=== PATIENT | male | born 1985 | race Caucasian/White ===

== ENCOUNTER 2018-12-03 08:34 | Emergency (ER) | payer SELFPAY ==
[~2018-12-03] VITALS: Ht 170.2 cm; Wt 136.1 kg
--- OUTSIDE RECORDS SUMMARY | 2018-12-03 08:36 | XMS REPORT | Summary of Care ---
Author Author [facility] Organization [facility] Address Unknown Phone Unavailable Encounter YUMIKO Brown(AMOS) [id number] Date(s): 06/18/17 - 06/18/17 [facility] [address] [place] [address]- [phone] Discharge Diagnosis: Atypical chest pain Discharge Disposition: Home or Self Care Attending Physician: Jyothi Mack DO Vital Signs Most recent to 1 2 oldest [Reference Range]: Height 167.64 cm (06/18/17 1:15 AM) Temperature Oral 98.0 DegF 98.2 DegF [96.4-99.1 DegF] (06/18/17 5:16 AM) (06/18/17 1:15 AM) Blood Pressure 125/84 mmHg 126/88 mmHg [90-140/60-90 mmHg] (06/18/17 5:16 AM) (06/18/17 1:15 AM) Respiratory Rate 14 BRMIN 18 BRMIN [14-20 BRMIN] (06/18/17 5:16 AM) (06/18/17 1:15 AM) Peripheral Pulse 76 bpm Rate [60-100 bpm] (06/18/17 1:15 AM) Weight 131.818 kg (06/18/17 1:15 AM) Body Mass Index 46.91 m2 (06/18/17 1:15 AM) Problem List No data available for this section Allergies, Adverse Reactions, Alerts Substance Reaction Severity Status morphine Active Medications Flexeril 10 mg oral tablet 10 mg=1 tab, PO, TID, PRN for spasm, X 5 day, # 15 tab, 0 Refill(s) Start Date: 06/18/17 Stop Date: 06/23/17 Status: Ordered ketOROLAC 15 mg, Route: IVP, Drug form: INJ, ONCE, Dosing Weight 131.818, kg, Priority: ST AT, Start date: 06/18/17 4:59:00 CDT, Stop date: 06/18/17 4:59:00 CDT Start Date: 06/18/17 Stop Date: 06/18/17 Status: Completed Results ELECTROLYTES Most recent to 1 oldest [Reference Range]: Sodium Lvl [135-145 137 mEq/L mEq/L] (06/18/17 3:54 AM) Potassium Lvl 3.8 mEq/L [3.5-5.1 mEq/L] (06/18/17 3:54 AM) Chloride Lvl [95-109 104 mEq/L mEq/L] (06/18/17 3:54 AM) CO2 [24-32 mEq/L] 29 mEq/L (06/18/17 3:54 AM) AGAP [10.0-20.0 7.8 mEq/L mEq/L] *LOW* (06/18/17 3:54 AM) CHEM PANEL Most recent to 1 oldest [Reference Range]: Creatinine Lvl 1.10 mg/dL [0.50-1.40 mg/dL] (06/18/17 3:54 AM) eGFR 88 mL/min/1.73m2 1 *NA* (06/18/17 3:54 AM) BUN [7-22 mg/dL] 13 mg/dL (06/18/17 3:54 AM) B/C Ratio [6-25] 12 (06/18/17 3:54 AM) Glucose Lvl [70-99 80 mg/dL mg/dL] (06/18/17 3:54 AM) Total Protein 7.8 g/dL [6.4-8.4 g/dL] (06/18/17 3:54 AM) Albumin Lvl [3.5-5.0 3.9 g/dL g/dL] (06/18/17 3:54 AM) Globulin [2.7-4.2 3.9 g/dL g/dL] (06/18/17 3:54 AM) A/G Ratio [0.7-1.6] 1.0 (06/18/17 3:54 AM) Calcium Lvl 8.4 mg/dL [8.5-10.5 mg/dL] *LOW* (06/18/17 3:54 AM) ALT [0-65 unit/L] 58 unit/L (06/18/17 3:54 AM) AST [0-37 unit/L] 31 unit/L (06/18/17 3:54 AM) Alk Phos [39-136 111 unit/L unit/L] (06/18/17 3:54 AM) Bili Total [0.2-1.3 0.5 mg/dL mg/dL] (06/18/17 3:54 AM) 1Result Comment: The eGFR is calculated using the CKD-EPI formula. In most young, healthy individuals the eGFR will be >90 mL/min/1.73m2. The eGFR declines with age. An eGFR of 60-89 may be normal in some populations, particularly the elderly, for whom the CKD-EPI formula has not been extensively validated. Use of the eGFR is not recommended in the following populations: Individuals with unstable creatinine concentrations, including patients and those with serious co-morbid conditions. Patients with extremes in muscle mass or diet. The data above are obtained from the National Kidney Disease Education Program ( NKDEP) which additionally recommends that when the eGFR is used in patients with extremes of body mass index for purposes of drug dosing, the eGFR should be mul tiplied by the estimated BMI. CARDIAC ENZYMES Most recent to 1 oldest [Reference Range]: Total CK [12-191 190 unit/L unit/L] (06/18/17 3:54 AM) CK MB [0.5-3.6 1.2 ng/mL ng/mL] (06/18/17 3:54 AM) Troponin-I <0.02 ng/mL [0.00-0.40 ng/mL] (06/18/17 3:54 AM) HEMATOLOGY Most recent to 1 oldest [Reference Range]: WBC [3.7-10.4 K/CMM] 6.4 K/CMM (06/18/17 3:54 AM) RBC [4.70-6.10 5.27 M/CMM M/CMM] (06/18/17 3:54 AM) Hgb [14.0-18.0 g/dL] 15.6 g/dL (06/18/17 3:54 AM) Hct [42.0-54.0 %] 45.6 % (06/18/17 3:54 AM) MCV [80.0-94.0 fL] 86.7 fL (06/18/17 3:54 AM) MCH [27.0-31.0 pg] 29.5 pg (06/18/17 3:54 AM) MCHC [32.0-36.0 34.1 g/dL g/dL] (06/18/17 3:54 AM) RDW [11.5-14.5 %] 13.7 % (06/18/17 3:54 AM) Platelet [133-450 133 K/CMM K/CMM] (06/18/17 3:54 AM) MPV [7.4-10.4 fL] 10.1 fL (06/18/17 3:54 AM) Segs [45.0-75.0 %] 51.7 % (06/18/17 3:54 AM) Lymphocytes 34.3 % [20.0-40.0 %] (06/18/17 3:54 AM) Monocytes [2.0-12.0 11.4 % %] (06/18/17 3:54 AM) Eosinophils [0.0-4.0 2.3 % %] (06/18/17 3:54 AM) Basophils [0.0-1.0 0.3 % %] (06/18/17 3:54 AM) Segs-Bands # 3.3 K/CMM [1.5-8.1 K/CMM] (06/18/17 3:54 AM) Lymphocytes # 2.2 K/CMM [1.0-5.5 K/CMM] (06/18/17 3:54 AM) Monocytes # [0.0-0.8 0.7 K/CMM K/CMM] (06/18/17 3:54 AM) Eosinophils # 0.1 K/CMM [0.0-0.5 K/CMM] (06/18/17 3:54 AM) D-Dimer <0.27 ug/mL FEU *NA* (06/18/17 3:54 AM) Immunizations No data available for this section Procedures No data available for this section Social History Social History Type Response Smoking Status Current some day smoker; Type: marijuanna; Exposure to Tobacco Smoke None; Cigarette Smoking Last 365 Days Yes; Reg Smoking Cessation Counseling No Assessment and Plan No data available for this section
--- OUTSIDE RECORDS SUMMARY | 2018-12-03 08:36 | XMS REPORT | Continuity of Care Document ---
Author Author [facility] Address Unknown Phone Unavailable Problems Problem Status Onset Date Classification Date Reported Comments Source Discharge Diagnosis: Atypical chest pain 06/18/2017 06/21/2017 [facility] CHEST PAIN Active 06/17/2017 [facility] Medications Medication Details Route Status Patient Instructions Ordering Provider Order Date Source Cyclobenzaprine hydrochloride 10 MG Oral Tablet [Flexeril] 10 mg=1 tab, PO, TID, PRN for spasm, X 5 day, # 15 tab, 0 Refill(s) Active 06/18/2017 [facility] Ketorolac 15 mg, Route: IVP, Drug form: INJ, ONCE, Dosing Weight 131.818, kg, Priority: STAT, Start date: 06/18/17 4:59:00 CDT, Stop date: 06/18/17 4:59:00 CDT Inactive 06/18/2017 [facility] Allergies, Adverse Reactions, Alerts Substance Category Reaction Severity Reaction type Status Date Reported Comments Source morphine Assertion Drug allergy Active [facility] Immunizations Immunization Date Given Site Status Last Updated Comments Source Results Order Name Results Value Reference Range Date Interpretation Comments Source CARDIAC ENZYMES Total CK 190 unit/L 12 - 191 06/18/2017 [facility] CARDIAC ENZYMES CK MB 1.2 ng/mL 0.5 - 3.6 06/18/2017 [facility] CARDIAC ENZYMES Troponin-I null 0.00 - 0.40 06/18/2017 [facility] CHEM PANEL A/G Ratio 1.0 0.7 - 1.6 06/18/2017 [facility] CHEM PANEL Globulin 3.9 g/dL 2.7 - 4.2 06/18/2017 [facility] CHEM PANEL B/C Ratio 12 6 - 25 06/18/2017 [facility] CHEM PANEL AGAP 7.8 meq/L 10.0 - 20.0 06/18/2017 [facility] CHEM PANEL eGFR 88 mL/min/1.73m2 06/18/2017 Result Comment: The eGFR is calculated using the [...] from the National Kidney Disease Education Program (NKDEP) which additionally recommends that when the eGFR is used in patients with extremes of body mass index for purposes of drug dosing, the eGFR should be multiplied by the estimated BMI. [facility] CHEM PANEL Calcium Lvl 8.4 mg/dL 8.5 - 10.5 06/18/2017 [facility] CHEM PANEL Albumin Lvl 3.9 g/dL 3.5 - 5.0 06/18/2017 [facility] CHEM PANEL CO2 29 meq/L 24 - 32 06/18/2017 [facility] CHEM PANEL Potassium Lvl 3.8 meq/L 3.5 - 5.1 06/18/2017 [facility] CHEM PANEL Total Protein 7.8 g/dL 6.4 - 8.4 06/18/2017 [facility] CHEM PANEL Chloride Lvl 104 meq/L 95 - 109 06/18/2017 [facility] CHEM PANEL Alk Phos 111 unit/L 39 - 136 06/18/2017 [facility] CHEM PANEL ALT 58 unit/L 0 - 65 06/18/2017 [facility] CHEM PANEL AST 31 unit/L 0 - 37 06/18/2017 [facility] CHEM PANEL Bili Total 0.5 mg/dL 0.2 - 1.3 06/18/2017 [facility] CHEM PANEL Creatinine Lvl 1.10 mg/dL 0.50 - 1.40 06/18/2017 [facility] CHEM PANEL Glucose Lvl 80 mg/dL 70 - 99 06/18/2017 [facility] CHEM PANEL BUN 13 mg/dL 7 - 22 06/18/2017 [facility] CHEM PANEL Sodium Lvl 137 meq/L 135 - 145 06/18/2017 [facility] HEMATOLOGY Eosinophils # 0.1 K/CMM 0.0 - 0.5 06/18/2017 [facility] HEMATOLOGY Segs 51.7 % 45.0 - 75.0 06/18/2017 [facility] HEMATOLOGY Eosinophils 2.3 % 0.0 - 4.0 06/18/2017 [facility] HEMATOLOGY Monocytes 11.4 % 2.0 - 12.0 06/18/2017 [facility] HEMATOLOGY Lymphocytes 34.3 % 20.0 - 40.0 06/18/2017 [facility] Lymphocytes # 2.2 K/CMM 1.0 - 5.5 06/18/2017 [facility] Segs-Bands # 3.3 K/CMM 1.5 - 8.1 06/18/2017 [facility] Basophils 0.3 % 0.0 - 1.0 06/18/2017 [facility] Monocytes # 0.7 K/CMM 0.0 - 0.8 06/18/2017 [facility] D-Dimer null 06/18/2017 [facility] MPV 10.1 fL 7.4 - 10.4 06/18/2017 [facility] Platelet 133 K/CMM 133 - 450 06/18/2017 [facility] MCHC 34.1 g/dL 32.0 - 36.0 06/18/2017 [facility] RDW 13.7 % 11.5 - 14.5 06/18/2017 [facility] MCH 29.5 pg 27.0 - 31.0 06/18/2017 [facility] Hgb 15.6 g/dL 14.0 - 18.0 06/18/2017 [facility] MCV 86.7 fL 80.0 - 94.0 06/18/2017 [facility] RBC 5.27 M/CMM 4.70 - 6.10 06/18/2017 [facility] WBC 6.4 K/CMM 3.7 - 10.4 06/18/2017 [facility] Hct 45.6 % 42.0 - 54.0 06/18/2017 [facility] Chest 1view DX Chest 1view DX Clinical Indication: Shortness of breath, chest pain Comparison: None FINDINGS: The frontal chest radiograph shows normal lung volumes without interstitial or airspace opacities, pleural effusions or pneumothorax. The cardiomediastinal contours are normal. The trachea is midline. There are no clinically significant osseous abnormalities noted. IMPRESSION: No chest radiographic evidence of acute cardiopulmonary disease. SL: 82 06/18/2017 - - Read by: Wolf Liz MD Dictated Date/time: 06/18/17 03:51 Electronically Signed by: Wolf Liz MD 06/18/17 03:52 FINAL REPORT [facility] Vital Signs Vital Sign Value Date Comments Source Temperature Oral (F) 98.0 F 06/18/2017 [facility] Respitory Rate 14 06/18/2017 [facility] Systolic (mm Hg) 125 06/18/2017 [facility] Diastolic (mm Hg) 84 06/18/2017 [facility] Weight 131.818 06/18/2017 [facility] BMI Calculated 46.91 06/18/2017 [facility] Height 167.64 cm 06/18/2017 [facility] Heart Rate 76 06/18/2017 [facility] Respitory Rate 18 06/18/2017 [facility] Systolic (mm Hg) 126 06/18/2017 [facility] Diastolic (mm Hg) 88 06/18/2017 [facility] Temperature Oral (F) 98.2 F 06/18/2017 [facility] Encounters Location Location Details Encounter Type Encounter Number Reason For Visit Attending Provider ADM Date DC Date Status Source [facility] Emergency [id number] Jyothi Mack 06/18/2017 06/18/2017 [facility] Procedures Procedure Code Date Perfomer Comments Source
== END 2018-12-03 09:08 | disposition left against medical advice (07) ==
LOC: ER 08:34
DX: R50.9 Fever, unspecified (principal)